=== PATIENT | female | born 1990 | race Caucasian/White ===

== ENCOUNTER 2020-09-30 11:06 | Day surgery (SDC) | payer OTHER ==
[2020-09-23 15:25] LABS: BASOPHILS # (AUTO) 0.1 X10'3 (0-0.2); BASOPHILS % (AUTO) 0.6 % (0-1); EOSINOPHILS # (AUTO) 0.2 X10'3 (0-0.9); EOSINOPHILS % (AUTO) 2.1 % (0-6); LYMPHOCYTES # (AUTO) 2.7 X10'3 (1.1-4.8); LYMPHOCYTES % (AUTO) 27.6 % (21-51); MEAN CORPUSCULAR HEMOGLOBIN 27.1 PG (27.0-31.0); MEAN CORPUSCULAR HGB CONC 32.1 g/dL (33.0-36.5); MEAN CORPUSCULAR VOLUME 84.4 FL (78-98); MEAN PLATELET VOLUME 7.8 FL (7.4-10.4); MONOCYTES # (AUTO) 0.8 X10'3 (0-0.9); MONOCYTES % (AUTO) 7.9 % (2-12); NEUTROPHILS # (AUTO) 6.2 X10'3 (1.8-7.7); NEUTROPHILS % (AUTO) 61.8 % (42-75); PRE OP HEMOGLOBIN 12.5 g/dL (12.0-16.0); PRE OP PLATELET COUNT 496 X10'3 (140-440); RED BLOOD COUNT 4.61 X10'6 (4.20-5.60); RED CELL DISTRIBUTION WIDTH 16.7 % (11.5-14.5)
[2020-09-23 15:26] LABS: HCG SERUM QL NEGATIVE
[2020-09-23 15:27] LABS: ALBUMIN 3.7 G/DL (3.4-5.0); ALBUMIN/GLOBULIN RATIO 0.8 (1.1-1.5); ALKALINE PHOSPHATASE 75 IU/L (46-116); BLOOD UREA NITROGEN 15 MG/DL (7-18); BUN/CREATININE RATIO 20.3 (6.6-38.0); CHLORIDE 103 MMOL/L (99-107); CREATININE 0.74 MG/DL (0.40-0.90); PRE OP ALT 19 U/L (30-65); PRE OP ANION GAP 13 (8-16); PRE OP AST 14 U/L (10-37); PRE OP BILIRUB, TOTAL 0.2 MG/DL (0.0-1.0); PRE OP GLUCOSE 85 MG/DL (70-104); PRE OP SODIUM 141 MMOL/L (135-145); TOTAL PROTEIN 8.3 G/DL (6.4-8.2); eGFR > 90 ML/MIN
[~2020-09-30] VITALS: Ht 160 cm; Wt 126.4 kg
[~2020-09-30 11:06] MED LIST: GABA600T13 PO; ceFAZolin/D5W- 1GM premix 50 ML IV ONE; cefazolin/dext.iso 2gm/100ml 100 ML IV ONE; famotidine 20mg tablet PO ONE; ringers solution, lacted 1,000 ML IV SCH; vancomycin 1,500 MG in NS 300ml IV soln IV ONE
[2020-09-30 11:25] VITALS: BP 131/86
[2020-09-30] MEDS ORDERED: ringers solution, lacted 1,000 ML IV SCH (12:30)
[2020-09-30] MEDS ORDERED: morphine 4 MG/ML inj SYRINge IV PRN (12:30)
[2020-09-30] MEDS ORDERED: meperidine/PF 25mg/ml syringe IV PRN ×3 (12:30)
[2020-09-30] MEDS ORDERED: ondansetron/PF 4mg/2ml inj IV PRN (12:30)
[2020-09-30] MEDS ORDERED: hydrALAZINE 20mg/ml inj. IV PRN (12:30)
[2020-09-30] MEDS ORDERED: acetaminophen 1,000mg/100ml IV 100 ML IV PRN (12:30)
[2020-09-30] MEDS ORDERED: proCHLORperazine 10 MG/2 ml inj IV PRN (12:30)
[2020-09-30] MEDS ORDERED: morphine 2 MG/ML inj. syringe IV PRN (12:30)
[2020-09-30] MEDS ORDERED: labetalol 20mg/4ml (5mg/ml) syringe IV PRN (12:30)
[2020-09-30] MEDS ORDERED: BUPIVAcaine/PF 2.5 mg/ml (0.25%) 30ml vial ONE (13:12)
[2020-09-30] MEDS ORDERED: methylPREDNISolone sod succ 125mg/2ml vial ONE (13:20)
[2020-09-30] MEDS ORDERED: fentaNYL/PF 50MCG/1 ML 2ML syringe ONE (13:21)
[2020-09-30] MEDS ORDERED: propofol inj 20 ML IV ONE ×3 (13:39→14:02)
[2020-09-30] MEDS ORDERED: midazolam 1 mg/ML 2ml injection ONE (13:39)
[2020-09-30] MEDS ORDERED: LIDOcaine 0.5% (5mg/ml) 50ml vial ONE (13:39)
[2020-09-30] MEDS ORDERED: MIDAZolam 1 MG/ML 5ML VIAL ONE (14:02)
[2020-09-30 14:10] VITALS: BP 108/66
--- NOTE | 2020-09-30 14:10 | NUR ---
Received from OR via BED , accompanied by Anesthesiologist and report given by Anesthesiolgist. PATIENT WAKING UP, NO S/S OF PAIN, V/S WNL, SCD ON, 20G TO LUE, RIGHT WRIST DRESSING CDI W/ SLING. ICE AND ELEVATED RUE.
[2020-09-30 14:20] VITALS: BP 112/63
[2020-09-30 14:30] VITALS: BP 109/68
[2020-09-30 14:40] VITALS: BP 114/64
--- NOTE | 2020-09-30 14:40 | NUR ---
PATIENT A&OX4, DENIES PAIN, V/S WNL, SCD ON, 20G TO LUE D/C, RIGHT WRIST DRESSING CDI W/ SLING. ICE AND ELEVATED RUE. i HAVE REVIEWED D/C INSTRUCTION WITH PATIENT AND SHE HAS VERBALIZED UNDERSTANDING. PATIENT D/C HOME WITH ALL BELONGINGS AND HER MOM GAVE TRANSPORT HOME.
== END 2020-09-30 14:40 | disposition home or self-care (01) ==
LOC: PAS 11:06
PROVIDERS: ATTEND Orthopaedic Surgery
DX: G56.01 Carpal tunnel syndrome, right upper limb (principal); G56.21 Lesion of ulnar nerve, right upper limb; D64.9 Anemia, unspecified; F32.9 Major depressive disorder, single episode, unspecified; F41.9 Anxiety disorder, unspecified; E66.01 Morbid (severe) obesity due to excess calories; Z68.42 Body mass index [BMI] 45.0-49.9, adult; Z86.14 Personal history of Methicillin resistant Staphylococcus aureus infection; Z20.822 Contact with and (suspected) exposure to COVID-19; Z87.891 Personal history of nicotine dependence; Z98.890 Other specified postprocedural states; Z79.899 Other long term (current) drug therapy
CPT/HCPCS: 36415; 64719; 64721; 80053; 82948; 84703; 85025; J0690; J2001; J2250; J2704; J2930; J3010; J3370; J3490; J7040; U0003; A4215; A4565; A4618; A6250; A7000; J7120

== ENCOUNTER → 2020-12-30 | Day surgery (SDC) | payer OTHER ==
[2020-12-22 12:47] LABS: BASOPHILS # (AUTO) 0.1 X10'3 (0-0.2); BASOPHILS % (AUTO) 0.7 % (0-1); EOSINOPHILS # (AUTO) 0.2 X10'3 (0-0.9); EOSINOPHILS % (AUTO) 2.7 % (0-6); LYMPHOCYTES # (AUTO) 2.5 X10'3 (1.1-4.8); LYMPHOCYTES % (AUTO) 29.3 % (21-51); MEAN CORPUSCULAR HEMOGLOBIN 27.7 PG (27.0-31.0); MEAN CORPUSCULAR HGB CONC 32.8 g/dL (33.0-36.5); MEAN CORPUSCULAR VOLUME 84.4 FL (78-98); MEAN PLATELET VOLUME 7.6 FL (7.4-10.4); MONOCYTES # (AUTO) 0.4 X10'3 (0-0.9); MONOCYTES % (AUTO) 5.3 % (2-12); NEUTROPHILS # (AUTO) 5.2 X10'3 (1.8-7.7); PRE OP HEMOGLOBIN 12.4 g/dL (12.0-16.0); PRE OP PLATELET COUNT 506 X10'3 (140-440); RED CELL DISTRIBUTION WIDTH 16.3 % (11.5-14.5)
[2020-12-22 13:14] LABS: HCG SERUM QL NEGATIVE
[2020-12-22 13:38] LABS: ALBUMIN 3.6 G/DL (3.4-5.0); ALBUMIN/GLOBULIN RATIO 0.8 (1.1-1.5); ALKALINE PHOSPHATASE 80 IU/L (46-116); BLOOD UREA NITROGEN 13 MG/DL (7-18); BUN/CREATININE RATIO 16.5 (6.6-38.0); CHLORIDE 102 MMOL/L (99-107); CREATININE 0.79 MG/DL (0.40-0.90); PRE OP ALT 20 U/L (30-65); PRE OP ANION GAP 9 (8-16); PRE OP AST 18 U/L (10-37); PRE OP BILIRUB, TOTAL 0.3 MG/DL (0.0-1.0); PRE OP GLUCOSE 88 MG/DL (70-104); PRE OP SODIUM 139 MMOL/L (135-145); TOTAL CARBON DIOXIDE 27.6 MMOL/L (24-32); TOTAL PROTEIN 8.2 G/DL (6.4-8.2); eGFR 85 ML/MIN
[~2020-12-30] VITALS: Ht 160 cm; Wt 128.9 kg
[~2020-12-30] MED LIST changes: +AMOX500C4 PO; +BUPIVAcaine/PF 2.5mg/ml (0.25%) 10ml vial ONE; +GABA300C PO; -GABA600T13 PO; +LIDOcaine 0.5% (5mg/ml) 50ml vial ONE; +LIDOcaine 1%/PF 5ML 10 MG/ML VIAL ONE; +MIDAZolam 1mg/ml 10ml vial ONE; +ceFAZolin inj. 3,000 MG in normal saline 100ml IV soln 100 ML IV ONE; -ceFAZolin/D5W- 1GM premix 50 ML IV ONE; -cefazolin/dext.iso 2gm/100ml 100 ML IV ONE; +fentaNYL/PF 50MCG/1 ML 2ML syringe IV PRN; +fentaNYL/PF 50MCG/1 ML 2ML syringe ONE; +hydrALAZINE 20mg/ml inj. IV PRN; +ketorolac trometh. 30mg/ml inj. ONE; +labetalol 20mg/4ml (5mg/ml) syringe IV PRN; +methylPREDNISolone sod succ 125mg/2ml vial ONE; +metoprolol tartrate 1mg/ml inj IV ONE; +morphine 2 MG/ML inj. syringe IV PRN; +morphine 4 MG/ML inj SYRINge IV PRN; +ondansetron/PF 4mg/2ml inj IV PRN
[2020-12-30 06:30] VITALS: BP 113/79
[2020-12-30 09:14] VITALS: BP 107/62
[2020-12-30 09:24] VITALS: BP 110/60
[2020-12-30 09:34] VITALS: BP 108/70
--- NOTE | 2020-12-30 09:40 | NUR ---
PT AWAKE ALERT VSS NO DISTESS UP AMBULATING IN ROOM RAO PO'S DENIES PAIN. DC INSTR GIVEN NO ?'S SISTER TO DRIVE PT HOME. MEETS CRITERIA TO GO HOME Addendum: 12/30/20 at 1007 by Stephanie Conte RN Amended: Links added.
== END | disposition home or self-care (01) ==
LOC: PAS 06:04
PROVIDERS: ATTEND Orthopaedic Surgery
DX: G56.02 Carpal tunnel syndrome, left upper limb (principal); G56.22 Lesion of ulnar nerve, left upper limb; G47.30 Sleep apnea, unspecified; E66.01 Morbid (severe) obesity due to excess calories; Z68.43 Body mass index [BMI] 50.0-59.9, adult; F32.9 Major depressive disorder, single episode, unspecified; F41.9 Anxiety disorder, unspecified; D64.9 Anemia, unspecified; Z98.890 Other specified postprocedural states; Z87.891 Personal history of nicotine dependence; Z79.899 Other long term (current) drug therapy
CPT/HCPCS: 36415; 64719; 64721; 80053; 82948; 84703; 85025; 93005; J0690; J1885; J2001; J2250; J2930; J3010; J3370; J3490; J7040; A4215; A4618; A6455; A7000; J7120